=== PATIENT | male | born 1955 | race Caucasian/White ===

== ENCOUNTER 2018-02-24 14:03 | Inpatient (IN) | payer OTHER ==
[~2018-02-24] VITALS: Ht 180.3 cm; Wt 94.0 kg
[~2018-02-24 14:03] MED LIST: AMOX TR-K CLV1 EAC4 PO; BACTRIM,SEPT1 TABLET PO; CIPRO500 MG PO; GEMFIBROZIL600 MG PO; HYDROCHLOROTH12.5 M3 PO; HYDROCHLOROTHIA25 MG PO; LANTUS 3 M100 UNITS1 SC; LEVEMIR FL100 UNIT/1 SC; LEVEMIR100 UNIT/2 SC; LISINOPRIL10 MG PO; METFORMIN HCL1000 MG PO; NORVASC10 MG PO; PROBIOTIC1 EAC1 PO; RAMIPRIL10 MG PO; VIBRAMYCIN100 MG PO; VITAMIN D-3 401 EACH PO; VITAMIN D32000 UNI1 PO
[2018-02-24 17:03] LABS: HEMATOCRIT 33.6 % (38.0-50.0); HEMOGLOBIN 11.3 G/DL (12.5-16.6); MCH 27.6 PG (29.0-34.0); MCHC 33.6 G/DL (30.0-36.0); MCV 82.2 FL (86-99); PLATELET COUNT 322 K/uL (156-360); RBC DIS.WIDTH-CV 13.4 % (11.8-14.6); RBC DIS.WIDTH-SD 40.4 % (39-53); RED BLOOD COUNT 4.09 M/uL (4.00-5.50); WHITE BLOOD COUNT 9.5 K/uL (4.1-10.2)
[2018-02-24 17:12] LABS: ALBUMIN 4.3 g/dL (3.2-4.8); CHLORIDE 101 mEq/L (99-109); SODIUM 137 mEq/L (136-147)
[2018-02-24 17:15] LABS: GLUCOSE 95 mg/dL (70-99); TOTAL PROTEIN 8.9 g/dL (6.4-8.3)
[2018-02-24 17:17] LABS: TOTAL BILIRUBIN 0.3 mg/dL (0.0-1.0)
[2018-02-24 17:18] LABS: ALKALINE PHOSPHATASE 64 IU/L (3-129); CREATININE 2.1 mg/dL (0.6-1.3); GFR ESTIMATE (CALCULATED) 34 mL/min/ (58.99-99999)
[2018-02-24 17:19] LABS: UREA NITROGEN (BUN) 62 mg/dL (9-23)
[2018-02-24 17:20] LABS: AST (GOT) 23 IU/L (2-34)
[2018-02-24 17:21] LABS: ALT (GPT) 17 IU/L (3-49)
[2018-02-24 17:25] LABS: TROP-I INTERPRETATION NEGATIVE; TROPONIN-I 0.08 ng/mL (0.0-0.30)
[2018-02-24 18:13] LABS: THYROTROPIN (TSH) 1.7 MIU/L (0.4-5.5)
[2018-02-24 19:45] LABS: APPEARANCE SL.HAZY ((CLEAR)); BILIRUBIN NEGATIVE; BLOOD NEGATIVE; COLOR YELLOW ((YELLOW)); GLUCOSE (STRIP) NEGATIVE; KETONES NEGATIVE; LEUKOCYTES NEGATIVE; NITRITE NEGATIVE; PROTEIN (STRIP) 30; SPECIFIC GRAVITY 1.017 (1.000-1.030); UROBILINOGEN 0.2 MG/DL (0.2-1.0)
[2018-02-24 19:53] LABS: BACTERIA RARE /HPF; EPITHELIAL CELLS RARE /HPF; MUCUS TRACE /LPF; RED BLOOD CELLS 0-5 /HPF (0-5); UCUL ADDED? NO; WHITE BLOOD CELLS 0-5 /HPF (0-5)
[2018-02-24 20:27] LABS: CREATINE KINASE 349 IU/L (1-294)
[2018-02-24] MEDS ORDERED: ALLOPURINOL100 MG PO (20:53)
[2018-02-24] MEDS ORDERED: GABAPENTIN100 MG PO (20:53)
[2018-02-25 00:14] VITALS: BP 143/74
[2018-02-25 05:23] LABS: HEMATOCRIT 29.3 % (38.0-50.0); HEMOGLOBIN 9.5 G/DL (12.5-16.6); MCH 26.5 PG (29.0-34.0); MCHC 32.4 G/DL (30.0-36.0); MCV 81.8 FL (86-99); PLATELET COUNT 284 K/uL (156-360); RBC DIS.WIDTH-CV 13.3 % (11.8-14.6); RBC DIS.WIDTH-SD 40.5 % (39-53); RED BLOOD COUNT 3.58 M/uL (4.00-5.50); WHITE BLOOD COUNT 8.3 K/uL (4.1-10.2)
[2018-02-25 05:54] LABS: GLUCOSE 128 mg/dL (70-99); UREA NITROGEN (BUN) 50 mg/dL (9-23)
[2018-02-25 05:55] LABS: CHLORIDE 102 MEQ/L (99-109); POTASSIUM 3.8 MEQ/L (3.7-5.4); SODIUM 137 MEQ/L (136-147)
[2018-02-25 06:14] LABS: CREATININE 1.6 MG/DL (0.6-1.3); GFR ESTIMATE (CALCULATED) 47 mL/min/ (58.99-99999)
[2018-02-25 07:53] VITALS: BP 121/61
[2018-02-25 16:02] VITALS: BP 154/73
[2018-02-25 23:05] VITALS: BP 137/65
[2018-02-26 06:24] LABS: BASOPHIL (%) 0.4 % (0-1); EOSINOPHIL (%) 0.5 % (0-5); HEMATOCRIT 34.5 % (38.0-50.0); IMMATURE GRANULOCYTE (%) 0.2 % (0.0-0.7); LYMPHOCYTE (%) 13.9 % (15-42); LYMPHOCYTE COUNT 1.2 K/uL (1.0-2.8); MCH 27.3 PG (29.0-34.0); MCHC 33.3 G/DL (30.0-36.0); MCV 81.8 FL (86-99); MONOCYTE (%) 11.4 % (3-12); NEUTROPHIL (%) 73.6 % (45-76); NEUTROPHIL COUNT 6.2 K/uL (1.8-6.4); RBC DIS.WIDTH-CV 13.5 % (11.8-14.6); RBC DIS.WIDTH-SD 40.1 % (39-53); RED BLOOD COUNT 4.22 M/uL (4.00-5.50); WHITE BLOOD COUNT 8.4 K/uL (4.1-10.2)
[2018-02-26 06:40] LABS: HEMOGLOBIN 11.5 G/DL (12.5-16.6); PLATELET COUNT 384 K/uL (156-360)
[2018-02-26 06:50] VITALS: BP 149/70
[2018-02-26 10:09] LABS: ALBUMIN 3.8 G/DL (3.2-4.8); ALKALINE PHOSPHATASE 49 IU/L (3-129); ALT (GPT) 14 IU/L (3-49); AST (GOT) 19 IU/L (2-34); CHLORIDE 103 MEQ/L (99-109); CREATININE 1.5 MG/DL (0.6-1.3); GFR ESTIMATE (CALCULATED) 51 mL/min/ (58.99-99999); SODIUM 140 MEQ/L (136-147); TOTAL BILIRUBIN 0.3 MG/DL (0.0-1.0); TOTAL PROTEIN 7.4 G/DL (6.4-8.3); UREA NITROGEN (BUN) 41 mg/dL (9-23)
[2018-02-26 10:11] LABS: GLUCOSE 40 mg/dL (70-99)
[2018-02-26 15:15] VITALS: BP 132/64
[2018-02-27 00:38] VITALS: BP 139/66
[2018-02-27 05:46] LABS: HEMATOCRIT 30.8 % (38.0-50.0); MCHC 32.5 G/DL (30.0-36.0); PLATELET COUNT 347 K/uL (156-360); RBC DIS.WIDTH-CV 13.4 % (11.8-14.6); RBC DIS.WIDTH-SD 40.5 % (39-53); RED BLOOD COUNT 3.71 M/uL (4.00-5.50); WHITE BLOOD COUNT 6.1 K/uL (4.1-10.2)
[2018-02-27 06:08] LABS: CHLORIDE 105 MEQ/L (99-109); CREATININE 1.5 MG/DL (0.6-1.3); GFR ESTIMATE (CALCULATED) 51 mL/min/ (58.99-99999); GLUCOSE 81 mg/dL (70-99); POTASSIUM 4.1 MEQ/L (3.7-5.4); SODIUM 139 MEQ/L (136-147); UREA NITROGEN (BUN) 43 mg/dL (9-23)
[2018-02-27 06:50] VITALS: BP 122/64
[2018-02-27] MEDS ORDERED: CEFDINIR300 MG PO (09:23)
[2018-02-27] MEDS ORDERED: TEST STRIPS MC (12:01)
[2018-02-27] MEDS ORDERED: GLUCOMETER MC (12:01)
== END 2018-02-27 12:40 | disposition home or self-care (01) | DRG 194 ==
LOC: EME 14:03 → EDOF 22:36 → 5EAST 22:36 → ENRESERV 22:37 → 5EAST 23:56 → ENPENDDIS 02-27 → 5EAST 02-27 12:40
PROVIDERS: Hospitalist; Physician Assistant Medical
DX: J15.9 Unspecified bacterial pneumonia (principal); N17.9 Acute kidney failure, unspecified; J45.909 Unspecified asthma, uncomplicated; N18.3 Chronic kidney disease, stage 3 (moderate); E11.22 Type 2 diabetes mellitus with diabetic chronic kidney disease; E11.649 Type 2 diabetes mellitus with hypoglycemia without coma; I12.9 Hypertensive chronic kidney disease with stage 1 through stage 4 chronic kidney disease, or unspecified chronic kidney disease; D64.9 Anemia, unspecified; M10.9 Gout, unspecified; R91.1 Solitary pulmonary nodule; R63.4 Abnormal weight loss; Z79.4 Long term (current) use of insulin; Z91.11 Patient's noncompliance with dietary regimen; Z80.3 Family history of malignant neoplasm of breast; Z82.49 Family history of ischemic heart disease and other diseases of the circulatory system; Z83.3 Family history of diabetes mellitus
CPT/HCPCS: 71046; 71250; 80048; 80053; 81003; 82550; 82948; 83036; 83605; 84443; 84484; 85025; 85027; 87040; 87449; 87502; 93005; 94010; 99281; 99285; J0456; J0696; J1644; J1815; J7030